=== PATIENT | female | born 1970 | race Hispanic/Latino ===

== ENCOUNTER 2019-07-27 23:46 | Emergency (ER) | payer OTHER ==
[2019-07-28] MEDS ORDERED: DIAZEPAM 5 MG TABLET ONE (01:25)
[2019-07-28] MEDS ORDERED: DiphenhydrAMINE HCL 50 MG/ML VIAL ONE (01:25)
== END 2019-07-28 01:32 | disposition home or self-care (01) ==
LOC: EDH 23:46
DX: F41.9 Anxiety disorder, unspecified (principal); G47.00 Insomnia, unspecified; R11.2 Nausea with vomiting, unspecified; I10 Essential (primary) hypertension; M32.9 Systemic lupus erythematosus, unspecified; M06.9 Rheumatoid arthritis, unspecified; Z88.0 Allergy status to penicillin; Z88.8 Allergy status to other drugs, medicaments and biological substances; Z90.49 Acquired absence of other specified parts of digestive tract; Z98.890 Other specified postprocedural states
CPT/HCPCS: 99284; J1200